=== PATIENT | female | born 1955 | race Caucasian/White ===

== ENCOUNTER 2017-03-09 06:49 | Day surgery (SDC) | payer BC ==
[~2017-03-09] VITALS: Ht 165.1 cm; Wt 64.3 kg
[2017-03-09 07:49] VITALS: BP 132/70; PULSE 77; TEMP 97.4
[2017-03-09] MEDS ORDERED: LUTEIN6 MG PO (08:15)
[2017-03-09] MEDS ORDERED: NATURAL E400 IU PO (08:15)
[2017-03-09] MEDS ORDERED: CALCIUM 600MG+D1 TAB PO (08:16)
[2017-03-09] MEDS ORDERED: LIPITOR 10MG10 MG PO (08:16)
[2017-03-09 09:00] VITALS: BP 108/58; PULSE 79; TEMP 98.9
[2017-03-09 09:15] VITALS: BP 109/70; PULSE 78
[2017-03-09 09:30] VITALS: BP 109/76; PULSE 75
[2017-03-09 10:47] VITALS: BP 105/62; PULSE 84
== END 2017-03-09 09:55 | disposition home or self-care (01) ==
LOC: SDCO 06:49
DX: Z12.11 Encounter for screening for malignant neoplasm of colon (principal); Z86.010 Personal history of colon polyps; K57.30 Diverticulosis of large intestine without perforation or abscess without bleeding; K64.0 First degree hemorrhoids; E78.00 Pure hypercholesterolemia, unspecified; Z88.0 Allergy status to penicillin; Z88.8 Allergy status to other drugs, medicaments and biological substances; Z88.1 Allergy status to other antibiotic agents
CPT/HCPCS: OP; J2250; J2405; J3010; J7030

== ENCOUNTER → 2017-04-08 | Outpatient (CLI) | payer BC ==
[~2017-04-08] MED LIST: CALCIUM 600MG+D1 TAB PO; LIPITOR 10MG10 MG PO; LUTEIN6 MG PO; NATURAL E400 IU PO
== END ==
LOC: MC.RAD 08:20
DX: Z12.31 Encounter for screening mammogram for malignant neoplasm of breast (principal)

== ENCOUNTER → 2017-04-15 | Outpatient (CLI) | payer BC | LOC: MC.RAD 12:42 | DX: R92.2 Inconclusive mammogram (principal) ==

== ENCOUNTER → 2018-04-14 | Outpatient (CLI) | payer BC | LOC: MC.RAD 10:20 | DX: Z12.31 Encounter for screening mammogram for malignant neoplasm of breast (principal) ==

== ENCOUNTER → 2019-05-22 | Outpatient (CLI) | payer MEDICARE, BC | LOC: MC.RAD 11:19 | DX: Z12.31 Encounter for screening mammogram for malignant neoplasm of breast (principal) ==

== ENCOUNTER → 2020-06-04 | Outpatient (CLI) | payer MEDICARE, BC | LOC: MC.RAD 11:15 | DX: Z12.31 Encounter for screening mammogram for malignant neoplasm of breast (principal) ==

== ENCOUNTER → 2021-07-01 | Outpatient (CLI) | payer MEDICARE, BC | LOC: MC.RAD 11:07 | DX: Z12.31 Encounter for screening mammogram for malignant neoplasm of breast (principal) ==

== ENCOUNTER → 2022-09-11 | Outpatient (CLI) | payer MEDICARE, BC | LOC: MC.RAD 09:48 | DX: Z12.31 Encounter for screening mammogram for malignant neoplasm of breast (principal) ==

== ENCOUNTER → 2024-03-20 | Outpatient (CLI) | payer MEDICARE, BC | LOC: MC.RAD 10:00 | DX: N63.20 Unspecified lump in the left breast, unspecified quadrant (principal) ==